=== PATIENT | male | born 1950 | race Asian ===

== ENCOUNTER 2020-12-07 18:08 | Inpatient (IN) | payer MEDICARE, OTHER ==
[~2020-12-07] VITALS: Ht 157.5 cm; Wt 49.9 kg
--- NOTE | 2020-12-07 18:50 | NUR ---
PT IS IN ROOM #2B. DR CHA EVALUATED THE PT. [employer] DR WHITFIELD WAS CALLED ACCORDING TO DR CHA REQUEST.
--- NOTE | 2020-12-07 18:53 | NUR ---
called [facility] cardio at [phone]. spoke with Jamaal, requested to speak with epic cardiology construction economist.
--- NOTE | 2020-12-07 18:59 | NUR ---
REPORT GIVEN TO MOLDER VACUUM RN.
[2020-12-07 19:01] LABS: BASOPHILS # (AUTO) 0.2 K/uL (0.0-8.0); BASOPHILS % (AUTO) 3.7 % (0.0-2.0); EOSINOPHILS % (AUTO) 0.4 % (0.0-7.0); HEMATOCRIT 37.1 % (36.7-47.1); HEMOGLOBIN 12.5 g/dL (12.5-16.3); LYMPHOCYTES # (AUTO) 1.5 K/uL (20.0-40.0); LYMPHOCYTES % (AUTO) 35.3 % (20.5-51.5); MEAN CORPUSCULAR HEMOGLOBIN 32.5 uug (23.8-33.4); MEAN CORPUSCULAR HGB CONC 34 g/dL (32.5-36.3); MEAN CORPUSCULAR VOLUME 96.8 fL (73.0-96.2); MONOCYTES # (AUTO) 0.4 K/uL (2.0-10.0); MONOCYTES % (AUTO) 9.2 % (0.0-11.0); NEUTROPHILS # (AUTO) 2.2 K/uL (1.8-8.9); NEUTROPHILS % (AUTO) 51.4 % (38.5-71.5); PLATELET COUNT (AUTO) 136 K/uL (152-348); RED BLOOD CELL COUNT(AUTO) 3.83 MIL/uL (4.06-5.63); WHITE BLOOD COUNT (AUTO) 4.2 K/uL (3.6-10.2)
[2020-12-07 19:08] LABS: CREATININE 1.3 mg/dL (0.6-1.3); POTASSIUM 3.9 mmol/L (3.5-5.1)
[2020-12-07 19:21] LABS: BILIRUBIN,DIRECT 0.2 mg/dL (0.0-0.2); BILIRUBIN,TOTAL 0.8 mg/dL (0.2-1.0); TOTAL PROTEIN, SERUM 7.4 g/dL (6.4-8.2)
[2020-12-07] MEDS ORDERED: NITROGLYCERIN 0.4 MG/TAB BOTTLE SL ONE (19:30)
[2020-12-07] MEDS ORDERED: ASPIRIN 325 MG TABLET PO ONE (19:30)
[2020-12-07] MEDS ORDERED: ALBUTEROL SULFATE 8 GM HFA.AER.AD IH PRN (19:30)
--- NOTE | 2020-12-07 19:30 | NUR ---
Ngoc albrecht in [facility] - 12/08/20 at 0647 by DENIS Patient requesting food, was given a sandwich and water.
[2020-12-07] MEDS ORDERED: AZITHROMYCIN 500MG/ D5W 250ML IVPB **ER PYXIS ONLY IV ONE (19:49)
[2020-12-07] MEDS: AZITHROMYCIN IV 500 MG in IV DEXTROSE 5% 250 ML IV SCH (20:00)
--- NOTE | 2020-12-07 20:00 | NUR ---
Patient in distress, requesting food to eat. [place] and water was given.
[2020-12-07] MEDS ORDERED: FUROSEMIDE 20 MG/2 ML VIAL IV ONE (20:15)
[2020-12-07] MEDS ORDERED: NITROGLYCERIN OINT 1 GM PACKET TP ONE (20:15)
--- NOTE | 2020-12-07 20:30 | NUR ---
Non-admin of 40mg LASIX per DR. MOODY that there is an order for 20mg to be given all ready at a similar time.
[2020-12-07] MEDS ORDERED: MAGNESIUM HYDROXIDE 30 ML LIQUID UDC PO PRN (21:00)
[2020-12-07] MEDS ORDERED: ONDANSETRON 4 MG/2 ML VIAL IV PRN (21:00)
[2020-12-07] MEDS ORDERED: Z GUARD REMEDY PASTE 57 GM TUBE TOP PRN (21:00)
[2020-12-07] MEDS: FUROSEMIDE 40 MG/4 ML VIAL IV SCH (21:00)
[2020-12-07] MEDS ORDERED: HYDROCODONE/APAP 5-325MG TABLET PO PRN (21:00)
[2020-12-07] MEDS ORDERED: ACETAMINOPHEN 325 MG TABLET PO PRN (21:00)
[2020-12-07 21:40] LABS: *AMPHETAMINE, URINE POSITIVE (NEGATIVE); *CANNABINOID, URINE NEGATIVE (NEGATIVE); *COCCAINE, URINE NEGATIVE (NEGATIVE); *OPIATE, URINE NEGATIVE (NEGATIVE); *PHENCYCLIDINE SCREEN,URINE NEGATIVE (NEGATIVE)
--- NOTE | 2020-12-07 22:00 | NUR ---
Ngoc albrecht in [facility] - 12/08/20 at 0651 by DENIS BiPaP not working on patient, SEMAJ intubated the patient increasing O2 sat to 100%
[2020-12-07] MEDS ORDERED: IOHEXOL 350 100 ML INFUS..BTL ONE (22:27)
[2020-12-07] MEDS ORDERED: SWABABLE VALVE TRANSFER SET EA MC ONE (22:27)
[2020-12-07] MEDS ORDERED: IV NORMAL SALINE 250 ML IV ONE (22:27)
--- NOTE | 2020-12-07 22:30 | NUR ---
Note trena in EDM - 12/08/20 at 0653 by DENIS Patient in considerable distress, stating he cannot breathe. MD Alan called to beside to examine patient. Patient was intitiated on BiPaP.
--- NOTE | 2020-12-07 22:30 | NUR ---
Patient in considerable distress, MD CHA called to beside to examine patient. BiPaP intitated.
--- NOTE | 2020-12-07 23:00 | NUR ---
Ngoc albrecht in ED - 12/08/20 at 0656 by DENIS Bipap discontinued and patient was intubated by Dr. Muniz to improve O2 sat
[2020-12-07 23:03] LABS: ABG BASE EXCESS -19.9 mmol/L; ABG HCO3 7.3 mmol/L; ABG PH 7.137 (7.350-7.450); ABG PO2 518.4 mmHg (75.0-100.0); ABG SITE LEFT RADIAL; VENT MODE BIPAP
[2020-12-07] MEDS: ETOMIDATE 20 MG/10 ML VIAL IV ONE ×2 (23:27→23:50)
--- NOTE | 2020-12-07 23:30 | NUR ---
BIPAP d/c, SEMAJ intubated patient
[2020-12-07] MEDS ORDERED: FENTANYL CITRATE 100 MCG/2 ML AMPUL ONE (23:57)
[2020-12-08] VITALS (24 sets, daily range): BP systolic 83–134; BP diastolic 55–95
[2020-12-08] MEDS ORDERED: FENTANYL CITRATE 100 MCG/2 ML AMPUL ONE ×2 (00:10→00:20)
[2020-12-08] MEDS: FENTANYL CITRAT IV 1,000 MCG in IV NORMAL SALINE 80 ML IV PRN ×2 (00:22→17:45)
[2020-12-08] MEDS ORDERED: MISCELLANEOUS MED XX ONE (00:45)
[2020-12-08] MEDS ORDERED: MIDAZOLAM HCL 5 MG/ML VIAL ONE (00:46)
[2020-12-08 01:11] LABS: ABG BASE EXCESS -6.7 mmol/L; ABG HCO3 17.5 mmol/L; ABG PCO2 31.5 mmHg (35.0-45.0); ABG PH 7.363 (7.350-7.450); ABG PO2 512.4 mmHg (75.0-100.0); ABG SITE RIGHT RADIAL; ABG TOTAL HEMOGLOBIN 13.4 G/dL (13.5-18.0); COHb 0.8 % (0.5-1.5); MetHb 0.1 % (0.0-1.5); O2Hb 99.1 % (94.0-97.0); VENT MODE VENT - A/C; VT, ABG 450 mL
[2020-12-08] MEDS ORDERED: FENTANYL CITRATE 100 MCG/2 ML AMPUL IV ONE (02:00)
[2020-12-08] MEDS: MIDAZOLAM HCL 50 MG in IV NORMAL SALINE 40 ML IV PRN ×2 (02:00→17:44)
--- NOTE | 2020-12-08 02:00 | NUR ---
TPA completed at 0200.
--- NOTE | 2020-12-08 03:00 | NUR ---
Report given to DRU Milan, patient going to bed 3
--- NOTE | 2020-12-08 04:00 | NUR ---
CORRECTION VERSED IS AT 1 MG
--- NOTE | 2020-12-08 04:00 | NUR ---
Patient was transferred to ICU BED 3 under care of DRU Milan
--- NOTE | 2020-12-08 04:00 | NUR ---
received report and patient from Olivier , patient is arousable to deep pain , on versed at 10 mg , fentanyl at 50mcg , vent setting ac 20 tv 450 p 5 fio2 65 % , menjivar inserted , sr at 85 saturating 96 % bp 99/75 hr 20 , temp 97.9
--- NOTE | 2020-12-08 04:30 | NUR ---
INSERTED WHITE CATHETER WITH 16 FR WITH ONE ATTEMPT
[2020-12-08] MEDS ORDERED: SUCCINYLCHOLINE CHLORIDE 200 MG/10 ML VIAL IV ONE ×2 (04:45→06:00)
[2020-12-08] MEDS ORDERED: MISCELLANEOUS MED IV ONE (04:45)
--- NOTE | 2020-12-08 04:45 | NUR ---
TOM CALLED ABOUT PATIENT;S STATUS , ON VERSED AND FENTANYL , LOW BLOOD PRESSURE , RECEIVED ORDER FOR LEVOPHED
[2020-12-08 05:24] LABS: BASOPHILS % (AUTO) 0.7 % (0.0-2.0); EOSINOPHILS % (AUTO) 0.2 % (0.0-7.0); HEMATOCRIT 36.4 % (36.7-47.1); HEMOGLOBIN 11.9 g/dL (12.5-16.3); LYMPHOCYTES # (AUTO) 1.8 K/uL (20.0-40.0); LYMPHOCYTES % (AUTO) 28.2 % (20.5-51.5); MEAN CORPUSCULAR HEMOGLOBIN 32.2 uug (23.8-33.4); MEAN CORPUSCULAR HGB CONC 33 g/dL (32.5-36.3); MEAN CORPUSCULAR VOLUME 98.1 fL (73.0-96.2); MONOCYTES # (AUTO) 0.9 K/uL (2.0-10.0); MONOCYTES % (AUTO) 14.1 % (0.0-11.0); NEUTROPHILS # (AUTO) 3.7 K/uL (1.8-8.9); NEUTROPHILS % (AUTO) 56.8 % (38.5-71.5); PLATELET COUNT (AUTO) 141 K/uL (152-348); RED BLOOD CELL COUNT(AUTO) 3.71 MIL/uL (4.06-5.63); WHITE BLOOD COUNT (AUTO) 6.5 K/uL (3.6-10.2)
[2020-12-08 05:44] LABS: CARBON DIOXIDE 25 mmol/L (21-32); CHLORIDE 106 mmol/L (98-107); CHOLESTEROL 116 mg/dL (<200); CREATININE 1.7 mg/dL (0.6-1.3); GLUCOSE 111 mg/dL (74-106); HDL CHOLESTEROL 38 mg/dL (40-60); MAGNESIUM 2.1 mg/dL (1.8-2.4); PHOSPHOROUS 4.6 mg/dL (2.5-4.9); POTASSIUM 4.8 mmol/L (3.5-5.1); TRIGLYCERIDES 57 MG/DL (30-150); UREA NITROGEN, BLOOD 34 mg/dL (7-18)
[2020-12-08 05:46] LABS: THYROID STIMULATING HORMONE 14.045 mIU/mL (0.358-3.740)
[2020-12-08] MEDS ORDERED: ETOMIDATE 20 MG/10 ML VIAL IV ONE (06:00)
[2020-12-08] MEDS ORDERED: PANTOPRAZOLE SODIUM 40 MG TABLET.DR PO SCH (07:00)
[2020-12-08] MEDS ORDERED: Z GUARD REMEDY PASTE 57 GM TUBE TOP PRN (07:30)
[2020-12-08] MEDS: FUROSEMIDE 40 MG/4 ML VIAL IV SCH ×2 (08:04→20:22)
[2020-12-08] MEDS ORDERED: HEPARIN/D5W DRIP 500 ML IV PRN (08:45)
[2020-12-08] MEDS ORDERED: ENOXAPARIN SODIUM 40 MG/0.4 ML DISP.SYRIN SQ SCH (09:00)
--- NOTE | 2020-12-08 09:33 | NUR ---
Dr. Camara in the unit to see pt. with new orders. report given.
--- NOTE | 2020-12-08 11:29 | NUR ---
Spoke to pharmacy. pt to start on heparin drip. dosing confirmed with pharmacy. per pharmacy, ,initial dose should be 900 instead of 1000. adjustments can follow the table.
[2020-12-08] MEDS: PANTOPRAZOLE SODIUM 40 MG VIAL IV SCH (11:51)
[2020-12-08] MEDS ORDERED: ALTEPLASE 100 MG VIAL IV ONE (12:19)
--- NOTE | 2020-12-08 13:39 | NUR ---
pt noted with change in rhythm/irregular HR, fluctuating from 70s to 130s. STAT ECG ordered and done. ECG results sent to Dr. Camara with new order for STAT ABG. RT Kayode aware.
[2020-12-08 13:57] LABS: ABG BASE EXCESS -2.4 mmol/L; ABG HCO3 22.5 mmol/L; ABG PCO2 39.3 mmHg (35.0-45.0); ABG PH 7.376 (7.350-7.450); ABG PO2 300.8 mmHg (75.0-100.0); ABG SITE RIGHT RADIAL; ABG TOTAL HEMOGLOBIN 13.5 G/dL (13.5-18.0); COHb 0.7 % (0.5-1.5); MetHb 0.3 % (0.0-1.5); O2Hb 98.9 % (94.0-97.0); VENT MODE VENT - A/C; VT, ABG 450 mL
--- NOTE | 2020-12-08 15:24 | NUR ---
Dr. Camara notified of continuous on and off fluctuating HR from 80s to 130s. also notified MD of STAT ABG results he ordered.
[2020-12-08] MEDS ORDERED: CEFTRIAXONE 1 G VIAL IM SCH (16:00)
[2020-12-08] MEDS: NOREPINEPHRINE BITARTRATE 8 MG in IV NORMAL SALINE 242 ML IV PRN (16:18)
[2020-12-08] MEDS: methylPREDNISolone SOD SUCC 40 MG/ML VIAL IV SCH ×2 (16:31→21:21)
--- NOTE | 2020-12-08 17:00 | NUR ---
Dr. Guerra in the unit to see and assess pt.. report given
[2020-12-08] MEDS: CEFTRIAXONE 1 G in IV DEXTROSE 5% 50 ML IV SCH (17:44)
--- NOTE | 2020-12-08 17:45 | NUR ---
fentanyl and versed bags completed and replaced with new ones. no pink paper found for fentanyl found. during endorsement with fuller brush man earlier this morning, only versed pink paper was endorsed by previous shift.
--- NOTE | 2020-12-08 18:51 | NUR ---
ptt result 47.9. per heparin protoccol, no change in dose, continue current order for 900units. next ptt ordered for tomorrow 12/09 @0600
--- NOTE | 2020-12-08 19:20 | NUR ---
shift report given to retail shift leader RN Tiara
--- NOTE | 2020-12-08 19:30 | NUR ---
Report received. Patient orally intubated and to mechanical ventilator with settings: AC=20, FIO2=40%, PEEP=5 and IK=327. O2 sat above 94%. Assessment done and documented. See flow sheet for complete data.
[2020-12-08] MEDS: AZITHROMYCIN IV 500 MG in IV DEXTROSE 5% 250 ML IV SCH (20:12)
--- NOTE | 2020-12-08 20:25 | NUR ---
RT at bedside. Suctioning BRB secretions orally also noted small amounts of blood from nares. No hematuria; but with small bleeding around the penile orifice. Spoke to Dr. Gtz re: bleeding. Ordered to dc Heparin drip.
[2020-12-09] VITALS (49 sets, daily range): BP systolic 71–118; BP diastolic 43–77
[2020-12-09] MEDS: methylPREDNISolone SOD SUCC 40 MG/ML VIAL IV SCH ×3 (06:00→21:48)
--- NOTE | 2020-12-09 06:30 | NUR ---
Remains on the same vent settings. Condition unchanged.
--- NOTE | 2020-12-09 08:15 | NUR ---
Pt.was seen by GISELA MARINO MD
[2020-12-09] MEDS: FUROSEMIDE 40 MG/4 ML VIAL IV SCH (08:22)
[2020-12-09] MEDS: PANTOPRAZOLE SODIUM 40 MG VIAL IV SCH (08:22)
[2020-12-09] MEDS: FENTANYL CITRAT IV 1,000 MCG in IV NORMAL SALINE 80 ML IV PRN (08:52)
[2020-12-09 09:00] LABS: ABG BASE EXCESS -7.7 mmol/L; ABG PCO2 37.6 mmHg (35.0-45.0); ABG PH 7.298 (7.350-7.450); ABG PO2 157.9 mmHg (75.0-100.0); ABG SITE RIGHT RADIAL; COHb 0.7 % (0.5-1.5); MetHb 0.2 % (0.0-1.5); O2Hb 98.4 % (94.0-97.0); VENT MODE VENT - A/C; VT, ABG 450 mL
[2020-12-09 09:24] LABS: ALANINE AMINOTRANSFERASE 98 U/L (16-63); ALKALINE PHOSPHATASE 86 U/L (50-136); ASPARTATE AMINOTRANSFERASE 79 U/L (15-37); BILIRUBIN,TOTAL 0.5 mg/dL (0.2-1.0); CARBON DIOXIDE 24 mmol/L (21-32); CHLORIDE 104 mmol/L (98-107); CREATININE 1.6 mg/dL (0.6-1.3); GLUCOSE 167 mg/dL (74-106); MAGNESIUM 2.2 mg/dL (1.8-2.4); PHOSPHOROUS 6.4 mg/dL (2.5-4.9); POTASSIUM 4.1 mmol/L (3.5-5.1); TOTAL PROTEIN, SERUM 7.6 g/dL (6.4-8.2); UREA NITROGEN, BLOOD 45 mg/dL (7-18)
[2020-12-09 09:32] LABS: BASOPHILS % (AUTO) 0.4 % (0.0-2.0); HEMATOCRIT 41.2 % (36.7-47.1); HEMOGLOBIN 13.5 g/dL (12.5-16.3); LYMPHOCYTES # (AUTO) 0.5 K/uL (20.0-40.0); LYMPHOCYTES % (AUTO) 14.3 % (20.5-51.5); MEAN CORPUSCULAR HEMOGLOBIN 31.9 uug (23.8-33.4); MEAN CORPUSCULAR HGB CONC 33 g/dL (32.5-36.3); MEAN CORPUSCULAR VOLUME 97.6 fL (73.0-96.2); MONOCYTES # (AUTO) 0.1 K/uL (2.0-10.0); MONOCYTES % (AUTO) 2.2 % (0.0-11.0); NEUTROPHILS % (AUTO) 83.1 % (38.5-71.5); PLATELET COUNT (AUTO) 199 K/uL (152-348); RED BLOOD CELL COUNT(AUTO) 4.22 MIL/uL (4.06-5.63); WHITE BLOOD COUNT (AUTO) 3.6 K/uL (3.6-10.2)
[2020-12-09] MEDS: CEFTRIAXONE 1 G in IV DEXTROSE 5% 50 ML IV SCH (17:00)
[2020-12-09] MEDS ORDERED: AMIODARONE HCL IV 150 MG in IV DEXTROSE 5% 100 ML IV ONE (17:30)
[2020-12-09] MEDS: AMIODARONE HCL IV 450 MG in IV DEXTROSE 5% 250 ML IV PRN (18:36)
--- NOTE | 2020-12-09 19:33 | NUR ---
Report received. Patient orally intubated and to mechanical ventilator with settings: AC=20, FIO2=30%, XA=530om, PEEP=5cm; O2 sats above 94%. On continuous Versed and Fentanyl drip via RIJ TLC; see IV spread sheet for rates/dosages. Hypotensive. Levophed drip started to keep SBP above 90. Assessment done; refer to flow sheet for complete data. Addendum: 12/10/20 at 0742 by BENJA PONCE RN Amended: Links added. Addendum: 12/10/20 at 0744 by BENJA PONCE RN Amended: Links added.
[2020-12-09] MEDS: NOREPINEPHRINE BITARTRATE 8 MG in IV NORMAL SALINE 242 ML IV PRN (20:05)
[2020-12-09] MEDS ORDERED: FUROSEMIDE 40 MG/4 ML VIAL IV SCH (21:00)
[2020-12-10] VITALS (46 sets, daily range): BP systolic 81–148; BP diastolic 49–89
--- NOTE | 2020-12-10 | NUR ---
Levophed drip titrated; SBPs in the 80's. Addendum: 12/10/20 at 0744 by BENJA PONCE RN Amended: Links added.
[2020-12-10] MEDS: MIDAZOLAM HCL 50 MG in IV NORMAL SALINE 40 ML IV PRN (01:34)
[2020-12-10] MEDS: AMIODARONE HCL IV 450 MG in IV DEXTROSE 5% 250 ML IV PRN (01:37)
[2020-12-10] MEDS: FENTANYL CITRAT IV 1,000 MCG in IV NORMAL SALINE 80 ML IV PRN (02:09)
[2020-12-10 05:14] LABS: BASOPHILS % (AUTO) 0.1 % (0.0-2.0); HEMATOCRIT 36.6 % (36.7-47.1); HEMOGLOBIN 12.2 g/dL (12.5-16.3); LYMPHOCYTES # (AUTO) 0.5 K/uL (20.0-40.0); LYMPHOCYTES % (AUTO) 10.4 % (20.5-51.5); MEAN CORPUSCULAR HEMOGLOBIN 32.9 uug (23.8-33.4); MEAN CORPUSCULAR HGB CONC 33 g/dL (32.5-36.3); MONOCYTES # (AUTO) 0.2 K/uL (2.0-10.0); MONOCYTES % (AUTO) 4.7 % (0.0-11.0); NEUTROPHILS % (AUTO) 84.8 % (38.5-71.5); PLATELET COUNT (AUTO) 245 K/uL (152-348); WHITE BLOOD COUNT (AUTO) 4.7 K/uL (3.6-10.2)
[2020-12-10] MEDS: methylPREDNISolone SOD SUCC 40 MG/ML VIAL IV SCH ×3 (05:24→22:29)
[2020-12-10 05:30] LABS: CARBON DIOXIDE 23 mmol/L (21-32); CHLORIDE 101 mmol/L (98-107); CREATININE 2.7 mg/dL (0.6-1.3); GLUCOSE 276 mg/dL (74-106); MAGNESIUM 2.6 mg/dL (1.8-2.4); PHOSPHOROUS 7.4 mg/dL (2.5-4.9); POTASSIUM 5.5 mmol/L (3.5-5.1); UREA NITROGEN, BLOOD 75 mg/dL (7-18)
--- NOTE | 2020-12-10 06:00 | NUR ---
Kept sedated with Versed and Fentanyl drips. Levophed drip remains at 0.15mcg/kg/min. to keep SBP above 90. Still with bloody secretions from mouth.
--- NOTE | 2020-12-10 07:15 | NUR ---
Received report from warehouse shift supervisor nurse, patient continues to be intubated on levophed 0.15, amioderon 0.5mg/min, fentanyl 50mcg, versed 2 mg. Sinus rhtyhm on the monitor, bed in low position, 100% oxygen saturation. All alarms and pumps checked. Will continue to monitor.
--- NOTE | 2020-12-10 07:21 | NUR ---
Reported abnormal chemistries to Dr. Fuentes. and requested sliding scale insulin.
[2020-12-10 08:05] LABS: *BILIRUBIN,URIN NEGATIVE (NEGATIVE); *CLARITY,URINE SLIGHTLY CLOUDY (CLEAR); *COLOR,URINE YELLOW (YELLOW); *KETONES,URINE NEGATIVE (NEGATIVE); *UROBILINOGEN,URINE 0.2 E.U./dl (NORMAL); LEUKOCYTE ESTERASE ,URINE NEGATIVE (NEGATIVE); NITRITE, URINE NEGATIVE (NEGATIVE); PH,URINE 5.5 (5.0-8.0); UGLUCOSE NEGATIVE (NEGATIVE)
[2020-12-10] MEDS: PANTOPRAZOLE SODIUM 40 MG VIAL IV SCH (08:23)
[2020-12-10] MEDS ORDERED: DEXTROSE 50% 50 ML DISP.SYRIN IV PRN (08:30)
[2020-12-10] MEDS: BLOOD SUGAR DIAGNOSTIC 1 EACH STRIP VI SCH ×4 (08:35→23:53)
[2020-12-10 08:44] LABS: ABG BASE EXCESS -10.2 mmol/L; ABG HCO3 17.5 mmol/L; ABG PH 7.208 (7.350-7.450); ABG PO2 122.7 mmHg (75.0-100.0); ABG SITE RIGHT RADIAL; ABG TOTAL HEMOGLOBIN 14.6 G/dL (13.5-18.0); MetHb 0.3 % (0.0-1.5); O2Hb 96.9 % (94.0-97.0); VENT MODE VENT - A/C; VT, ABG 450 mL
[2020-12-10 08:50] LABS: *CREATININE,URINE 66.8 mg/dL (30-125)
[2020-12-10 08:51] LABS: *BLOOD, URINE TRACE (NEGATIVE)
[2020-12-10 09:03] LABS: RBC,URINE 0-3 /HPF (0-3)
[2020-12-10 09:04] LABS: BACTERIA,URINE NONE SEEN /HPF (NONE SEEN); MUCUS,URINE FEW /LPF (0-FEW); SQUAMOUS EPITHELIAL CELL,UR FEW /HPF (NONE SEEN); URINE AMORPHOUS URATE MODERATE /HPF
--- NOTE | 2020-12-10 11:00 | NUR ---
Building Serviceman notes: Patient is a 70 year old male, who came to the ED on 12/07 complaining of shortness of breath. Per ED physician's note, patient has a hx of methamphetamines use, along with cigarettes. Per ED physician's notes, patient required to be intubated soon after arriving to the ED, and currently remains intubated. Per patient's records, patient is homeless, and there is no information on next-of-kin. This SW is unable to interview the patient due to his current medical condition. SW will remain available, as needed.
[2020-12-10] MEDS: SODIUM BICARBONATE 8.4% 100 MEQ in IV D5 1/2 NS 1000 ML 1,000 ML IV SCH (12:15)
--- NOTE | 2020-12-10 13:55 | NUR ---
Coldfusion note: This SW was able to locate next-of-kin for this patient, Hang Ochoa, son, . SW was able to speak with Hang, who stated that he is one of 4 children for the patient. SW informed Hang that patient is currently in the ICU, and asked about his involvement in patient's life and his willingness to speak with patient's physician regarding patient's prognosis and treatment plan. Hang stated he was receptive to speaking with patient's physician. This SW to contact patient's physician to relay above information. SW also informed patient's nurse Danyelle about above information.
[2020-12-10] MEDS: INSULIN REGULAR, HUMAN 300 UNIT/3 ML VIAL SQ PRN (13:57)
[2020-12-10] MEDS: NOREPINEPHRINE BITARTRATE 8 MG in IV NORMAL SALINE 242 ML IV PRN (14:00)
--- NOTE | 2020-12-10 15:25 | NUR ---
This SW spoke with Dr. Fuentes and informed her that patient has a next-of-kin, Hang Ochoa, son, . Son's name and phone number provided to Dr. Fuentes, who will call patient's son to discuss patient's condition, prognosis, and treatment plan.
[2020-12-10] MEDS: CEFTRIAXONE 1 G in IV DEXTROSE 5% 50 ML IV SCH (17:18)
[2020-12-10] MEDS ORDERED: SODIUM POLYSTYRENE SULFONATE 15 G/60 ML LIQUID UDC PO ONE (17:30)
[2020-12-10] MEDS: NEPRO 1000 ML GT PRN (18:50)
--- NOTE | 2020-12-10 20:00 | NUR ---
ROUNDS MADE PATIENT IN BED ORALLY INTUBATED AC 20 FIO2 30% PEEP 5 TV 450.SUCTION PATIENT VIA ETT AND VIA MOUTH . NO S/S OF PAIN PATIENT ON VERSED AND FENTANYL DRIP FOR SEDATION . CONTINUE TO MONITOR V/S AND ON LEVOPHED TO KEEP SYSTOLIC >90 MM/HG . CONTINUE TO MONITOR V/S AND LEVELS OF COMFORT .
[2020-12-10] MEDS: AMIODARONE HCL 200 MG TABLET PO SCH (20:28)
[2020-12-10] MEDS ORDERED: FUROSEMIDE 40 MG/4 ML VIAL IV ONE (21:00)
[2020-12-11] VITALS (76 sets, daily range): BP systolic 88–148; BP diastolic 46–93
--- NOTE | 2020-12-11 | NUR ---
Lasix given 80 mg x1 with good results 1100 ml .yellowish urine
[2020-12-11] MEDS: INSULIN REGULAR, HUMAN 300 UNIT/3 ML VIAL SQ PRN ×5 (00:12→23:54)
[2020-12-11] MEDS: FENTANYL CITRAT IV 1,000 MCG in IV NORMAL SALINE 80 ML IV PRN ×2 (00:22→21:10)
[2020-12-11] MEDS: NOREPINEPHRINE BITARTRATE 8 MG in IV NORMAL SALINE 242 ML IV PRN ×2 (00:28→23:45)
[2020-12-11] MEDS: SODIUM BICARBONATE 8.4% 100 MEQ in IV D5 1/2 NS 1000 ML 1,000 ML IV SCH ×2 (02:39→16:59)
--- NOTE | 2020-12-11 05:30 | NUR ---
am care done bath patient changed soiled linens and gown ,oral care done suction patient via ett and via mouth .
[2020-12-11] MEDS: BLOOD SUGAR DIAGNOSTIC 1 EACH STRIP VI SCH ×4 (05:52→23:52)
[2020-12-11 06:16] LABS: CARBON DIOXIDE 29 mmol/L (21-32); CHLORIDE 101 mmol/L (98-107); CREATINE KINASE, TOTAL 41 U/L (39-308); CREATININE 3.4 mg/dL (0.6-1.3); MAGNESIUM 2.5 mg/dL (1.8-2.4); PHOSPHOROUS 6.3 mg/dL (2.5-4.9)
[2020-12-11 06:31] LABS: GLUCOSE 312 mg/dL (74-106); UREA NITROGEN, BLOOD 96 mg/dL (7-18)
[2020-12-11 06:51] LABS: BASOPHILS % (AUTO) 0.1 % (0.0-2.0); EOSINOPHILS % (AUTO) 0.2 % (0.0-7.0); HEMATOCRIT 40.8 % (36.7-47.1); HEMOGLOBIN 13.8 g/dL (12.5-16.3); LYMPHOCYTES # (AUTO) 0.2 K/uL (20.0-40.0); LYMPHOCYTES % (AUTO) 3.4 % (20.5-51.5); MEAN CORPUSCULAR HEMOGLOBIN 32.9 uug (23.8-33.4); MEAN CORPUSCULAR HGB CONC 34 g/dL (32.5-36.3); MEAN CORPUSCULAR VOLUME 97.3 fL (73.0-96.2); MONOCYTES # (AUTO) 0.3 K/uL (2.0-10.0); MONOCYTES % (AUTO) 5.1 % (0.0-11.0); NEUTROPHILS # (AUTO) 5.4 K/uL (1.8-8.9); NEUTROPHILS % (AUTO) 91.2 % (38.5-71.5); PLATELET COUNT (AUTO) 139 K/uL (152-348); WHITE BLOOD COUNT (AUTO) 5.9 K/uL (3.6-10.2)
[2020-12-11] MEDS: methylPREDNISolone SOD SUCC 40 MG/ML VIAL IV SCH ×3 (08:10→21:04)
[2020-12-11] MEDS: AMIODARONE HCL 200 MG TABLET PO SCH ×2 (08:10→20:03)
[2020-12-11] MEDS: PANTOPRAZOLE SODIUM 40 MG VIAL IV SCH (08:10)
[2020-12-11] MEDS: NEPRO 1000 ML GT PRN (08:33)
[2020-12-11 08:58] LABS: ABG BASE EXCESS 1.1 mmol/L; ABG HCO3 27.1 mmol/L; ABG PH 7.369 (7.350-7.450); ABG PO2 121.5 mmHg (75.0-100.0); ABG SITE RIGHT RADIAL; VENT MODE VENT - A/C; VT, ABG 450 mL
--- NOTE | 2020-12-11 09:15 | NUR ---
Dr. clemens in the unit and saw pt. report given
--- NOTE | 2020-12-11 12:03 | NUR ---
pt noted with episodes of bradycardia down to 52 then up to 60s. STAT EKG ordered showing sinus bradycardia with PACs, left ventricular hypertrophy with repolarization abnormality, and prolonged QT. Dr. Camara informed and EKG results relayed to MD. Per MD, nothing to do for now. will continue to monitor.
[2020-12-11] MEDS: MIDAZOLAM HCL 50 MG in IV NORMAL SALINE 40 ML IV PRN (12:12)
--- NOTE | 2020-12-11 13:35 | NUR ---
pt noted with aflutter on the monitor. Dr. Fuentes in the unit. full report given
--- NOTE | 2020-12-11 13:39 | NUR ---
spoke to Dr. Camara on the telephone and inform MD that pt went into aflutter on the monitor. Per MD, just continue to monitor pt for now as pt already on amio and pressors. will continue to monitor.
--- NOTE | 2020-12-11 13:54 | NUR ---
Dr. Guerra in the unit to see & assess pt. full report given
[2020-12-11] MEDS: HEPARIN SODIUM,PORCINE 5,000 UNITS/ML VIAL SQ SCH ×2 (14:49→20:05)
--- NOTE | 2020-12-11 16:54 | NUR ---
Patient noted to have a temp of 96.2 rectally after assessing patient for increasing bradycardia. Patient placed under several blankets and socks until salvage supervisor is able to bring bairhugger.
[2020-12-11] MEDS: CEFTRIAXONE 1 G in IV DEXTROSE 5% 50 ML IV SCH (16:59)
[2020-12-12] VITALS (73 sets, daily range): BP systolic 99–137; BP diastolic 52–74
--- NOTE | 2020-12-12 00:42 | NUR ---
Received patient from AM nurse. On vent(7.5 - 24 at the lip): A/C - 20 -- Fio2: 30% -- TV: 450 -- PEEP: 5. Patient is Sinus Lester on monitor and on rico hugger due to being Hypothermic during day shift. On drips of Levofed running at 0.02mcg/kg/min -- Fentanyl 5 mg/hr -- bicarb 75cc/hr -- and versed at 2mg/hr. Accucheck Q6H. Will continue plan of care, monitor, and assess.
--- NOTE | 2020-12-12 00:51 | NUR ---
Patient weaned down from dose of Levofed and Versed. Levofed was running at 0.02 mcg/kg/min and has been titrated down to 0.01 mcg/kg min. Versed was running at 2 ml/hr and has been titrated down to 1 ml/hr. Patients vital signs stable. See Vital sheet. Will monitor and assess. Addendum: 12/12/20 at 0250 by ALINA HERNANDEZ RN LEVOPHED*
[2020-12-12] MEDS ORDERED: IV NORMAL SALINE 500 ML IV PRN (02:30)
[2020-12-12] MEDS: methylPREDNISolone SOD SUCC 40 MG/ML VIAL IV SCH ×3 (05:14→22:03)
[2020-12-12] MEDS: MIDAZOLAM HCL 50 MG in IV NORMAL SALINE 40 ML IV PRN ×2 (05:15→11:50)
[2020-12-12] MEDS: SODIUM BICARBONATE 8.4% 100 MEQ in IV D5 1/2 NS 1000 ML 1,000 ML IV SCH (05:20)
[2020-12-12] MEDS: BLOOD SUGAR DIAGNOSTIC 1 EACH STRIP VI SCH ×4 (05:33→23:57)
[2020-12-12] MEDS: INSULIN REGULAR, HUMAN 300 UNIT/3 ML VIAL SQ PRN ×4 (05:34→23:58)
--- NOTE | 2020-12-12 05:44 | NUR ---
PHARMACY: Midazolam MIXED but NOT USED. WILL BE GIVEN TO AM PHARMACY.
[2020-12-12 05:54] LABS: HEMATOCRIT 37.6 % (36.7-47.1); HEMOGLOBIN 12.7 g/dL (12.5-16.3); LYMPHOCYTES # (AUTO) 0.2 K/uL (20.0-40.0); LYMPHOCYTES % (AUTO) 3.2 % (20.5-51.5); MEAN CORPUSCULAR HEMOGLOBIN 32.9 uug (23.8-33.4); MEAN CORPUSCULAR HGB CONC 34 g/dL (32.5-36.3); MEAN CORPUSCULAR VOLUME 97.2 fL (73.0-96.2); MONOCYTES # (AUTO) 0.3 K/uL (2.0-10.0); MONOCYTES % (AUTO) 4.5 % (0.0-11.0); NEUTROPHILS # (AUTO) 5.9 K/uL (1.8-8.9); NEUTROPHILS % (AUTO) 92.3 % (38.5-71.5); PLATELET COUNT (AUTO) 119 K/uL (152-348); RED BLOOD CELL COUNT(AUTO) 3.87 MIL/uL (4.06-5.63); WHITE BLOOD COUNT (AUTO) 6.4 K/uL (3.6-10.2)
[2020-12-12 06:15] LABS: CARBON DIOXIDE 38 mmol/L (21-32); CHLORIDE 108 mmol/L (98-107); GLUCOSE 253 mg/dL (74-106); MAGNESIUM 2.7 mg/dL (1.8-2.4); PHOSPHOROUS 2.7 mg/dL (2.5-4.9); POTASSIUM 3.7 mmol/L (3.5-5.1); UREA NITROGEN, BLOOD 78 mg/dL (7-18)
[2020-12-12 06:30] LABS: ABG BASE EXCESS 11.3 mmol/L; ABG HCO3 37.4 mmol/L; ABG PO2 101.2 mmHg (75.0-100.0); ABG SITE RIGHT RADIAL; ABG TOTAL HEMOGLOBIN 13.6 G/dL (13.5-18.0); COHb 0.8 % (0.5-1.5); MetHb 0.3 % (0.0-1.5); O2Hb 96.7 % (94.0-97.0); VENT MODE VENT - A/C; VT, ABG 450 mL
--- NOTE | 2020-12-12 07:18 | NUR ---
Patient handed off to AM nurse. Hemodynamically stable. VSS. No distress. Safety measures in place. Plan of care continued. Will monitor and assess.
[2020-12-12] MEDS: AMIODARONE HCL 200 MG TABLET PO SCH ×2 (08:01→20:07)
[2020-12-12] MEDS: HEPARIN SODIUM,PORCINE 5,000 UNITS/ML VIAL SQ SCH ×2 (08:01→20:09)
[2020-12-12] MEDS: PANTOPRAZOLE ORAL SUSPENSION 40 MG SUSPDR.PKT GT SCH (08:01)
[2020-12-12 08:06] LABS: COMPLEMENT, C3 SERUM 62 mg/dL (82-167); COMPLEMENT, C4 SERUM 21 mg/dL (12-38)
[2020-12-12] MEDS: NEPRO 1000 ML GT PRN (09:02)
--- NOTE | 2020-12-12 09:16 | NUR ---
DUST COLLECTOR OPERATOR Juventino Pineda in the unit to see pt. with new orders. full report given
--- NOTE | 2020-12-12 09:40 | NUR ---
Dr. Camara in the unit to see pt. full report given
--- NOTE | 2020-12-12 10:34 | NUR ---
Dr. Guerra in the unit to see and assess pt. with new orders. full report given
--- NOTE | 2020-12-12 11:00 | NUR ---
Dr. Fuentes stopped by the unit. given update/report about pt
[2020-12-12 11:06] LABS: HEPATITIS B SURFACE AB Non Reactive (.); HEPATITIS B SURFACE AG Negative (Negative)
--- NOTE | 2020-12-12 14:22 | NUR ---
Pt noted with bradycardia for about an hour, HR in the 50s, lowest around 46. Asymptomatic. Currently back to HR in the 60s, NSR. Pt off levophed, SBP sustaining >100. Cardio MD, Dr. Camara informed lida no new orders except continue to monitor for now
[2020-12-12] MEDS: CEFTRIAXONE 1 G in IV DEXTROSE 5% 50 ML IV SCH (16:57)
[2020-12-12] MEDS: FENTANYL CITRAT IV 1,000 MCG in IV NORMAL SALINE 80 ML IV PRN (17:06)
--- NOTE | 2020-12-12 19:16 | NUR ---
shift report given to date night sitter RN. VSS. NSR on the monitor. Pt been off of Levoophed since 1330 and maintaining SBP>90. Vent settings AC 20 TC 450 Peep 5, FiO2 30%
--- NOTE | 2020-12-12 19:30 | NUR ---
Report received from am RNs. Patient orally intubated and to mechanical ventilator with settings: AC=20, FIO2=30%, HX=341lz and PEEP=5. O2 saturations above 94%. Grimaces to pain. On continuous Versed @ 1 mg/H and Fentanyl drip @ 50 mcg/H via RIJ TLC. compliance analyst: SR rate 60's-70's. Assessment done and documented. Addendum: 12/12/20 at 2125 by BENJA PONCE RN Amended: Links added.
[2020-12-13] VITALS (24 sets, daily range): BP systolic 128–188; BP diastolic 64–102
--- NOTE | 2020-12-13 01:45 | NUR ---
Patient's daughter Lorena patel; updated of patient's condition. Addendum: 12/13/20 at 0629 by BENJA PONCE RN Amended: Links added. Addendum: 12/13/20 at 629 by BENJA PONCE RN Amended: Links added. Addendum: 12/13/20 at 0630 by BENJA PONCE RN Amended: Links added. Addendum: 12/13/20 at 0631 by BENJA PONCE RN Amended: Links added. Addendum: 12/13/20 at 0631 by BENJA PONCE RN Amended: Links added. Addendum: 12/13/20 at 0631 by BENJA PONCE RN Amended: Links added.
--- NOTE | 2020-12-13 02:30 | NUR ---
Sinus bradycardia on the monitor rate 45-48; BPs stable. Addendum: 12/13/20 at 06 by BENJA PONCE RN Amended: Links added. Addendum: 12/13/20 at 629 by BENJA PONCE RN Amended: Links added. Addendum: 12/13/20 at 0631 by BENJA PONCE RN Amended: Links added. Addendum: 12/13/20 at 0631 by BENJA PONCE RN Amended: Links added. Addendum: 12/13/20 at 0631 by BENJA PONCE RN Amended: Links added.
[2020-12-13] MEDS ORDERED: IV NORMAL SALINE 250 ML IV PRN (05:00)
[2020-12-13 05:09] LABS: BASOPHILS % (AUTO) 0.1 % (0.0-2.0); HEMATOCRIT 38.9 % (36.7-47.1); LYMPHOCYTES # (AUTO) 0.3 K/uL (20.0-40.0); LYMPHOCYTES % (AUTO) 4.5 % (20.5-51.5); MEAN CORPUSCULAR HEMOGLOBIN 32.9 uug (23.8-33.4); MEAN CORPUSCULAR HGB CONC 34 g/dL (32.5-36.3); MEAN CORPUSCULAR VOLUME 98.1 fL (73.0-96.2); MONOCYTES # (AUTO) 0.4 K/uL (2.0-10.0); MONOCYTES % (AUTO) 6.7 % (0.0-11.0); NEUTROPHILS # (AUTO) 5.6 K/uL (1.8-8.9); NEUTROPHILS % (AUTO) 88.7 % (38.5-71.5); PLATELET COUNT (AUTO) 123 K/uL (152-348); RED BLOOD CELL COUNT(AUTO) 3.97 MIL/uL (4.06-5.63); WHITE BLOOD COUNT (AUTO) 6.3 K/uL (3.6-10.2)
[2020-12-13 05:15] LABS: CHLORIDE 112 mmol/L (98-107); CREATININE 1.6 mg/dL (0.6-1.3); GLUCOSE 240 mg/dL (74-106); MAGNESIUM 2.8 mg/dL (1.8-2.4); POTASSIUM 3.2 mmol/L (3.5-5.1); UREA NITROGEN, BLOOD 68 mg/dL (7-18)
[2020-12-13] MEDS: methylPREDNISolone SOD SUCC 40 MG/ML VIAL IV SCH ×3 (05:15→21:00)
[2020-12-13 05:34] LABS: CARBON DIOXIDE 41 mmol/L (21-32)
[2020-12-13] MEDS: BLOOD SUGAR DIAGNOSTIC 1 EACH STRIP VI SCH ×3 (05:56→17:34)
[2020-12-13] MEDS: INSULIN REGULAR, HUMAN 300 UNIT/3 ML VIAL SQ PRN ×3 (05:57→17:35)
--- NOTE | 2020-12-13 07:00 | NUR ---
Remains on the same vent settings; O2 sat above 94%. Fentanyl drip titrated down. Addendum: 12/13/20 at 0700 by BENJA PONCE RN Amended: Links added.
[2020-12-13] MEDS ORDERED: IV D5W 1000ML 1,000 ML IV PRN (08:00)
[2020-12-13] MEDS: AMIODARONE HCL 200 MG TABLET PO SCH (08:05)
[2020-12-13] MEDS: PANTOPRAZOLE ORAL SUSPENSION 40 MG SUSPDR.PKT GT SCH (08:05)
[2020-12-13] MEDS: HEPARIN SODIUM,PORCINE 5,000 UNITS/ML VIAL SQ SCH ×2 (08:06→20:16)
[2020-12-13] MEDS ORDERED: POTASSIUM CHLORIDE 20 MEQ POWDER PACKET NG SCH (09:30)
[2020-12-13 09:46] LABS: ABG BASE EXCESS 8.3 mmol/L; ABG HCO3 32.3 mmol/L; ABG PCO2 42.2 mmHg (35.0-45.0); ABG PH 7.502 (7.350-7.450); ABG SITE RIGHT RADIAL; ABG TOTAL HEMOGLOBIN 13.9 G/dL (13.5-18.0); COHb 1.5 % (0.5-1.5); O2Hb 96.9 % (94.0-97.0); VENT MODE VENT - CPAP - PS 8
--- NOTE | 2020-12-13 09:46 | NUR ---
Patient went tachy in 120's sustained for 3-5min. Possible a-fib, EKG ordered Ppa Teacher notified.
[2020-12-13] MEDS ORDERED: AMIODARONE HCL 200 MG TABLET PO ONE (10:00)
[2020-12-13 10:07] LABS: *ANTI-SCLERODERMA-70 AB <0.2 AI (0.0-0.9); *SJOGREN'S ANTI-SS-A <0.2 AI (0.0-0.9); *SJOGREN'S ANTI-SS-B <0.2 AI (0.0-0.9); *SMITH ANTIBODIES <0.2 AI (0.0-0.9); A/G RATIO 0.8 (0.7-1.7); ALPHA-1-GLOBULIN 0.3 g/dL (0.0-0.4); ALPHA-2-GLOBULIN 0.8 g/dL (0.4-1.0); ANTI-DNA(DS) AB, QN <1 IU/mL (0-9); GAMMA GLOBULIN 1.9 g/dL (0.4-1.8); M-SPIKE Not Observed g/dL (Not Observed)
--- NOTE | 2020-12-13 10:32 | NUR ---
Pulmonary services, Dr. Guerra in the unit to see and examine pt. report given. Orders received and implemented, RT Kayode/Ernesto at bedside.
[2020-12-13] MEDS ORDERED: ACETYLCYSTEINE 20% 800 MG/4 ML VIAL NEB PRN (10:45)
--- NOTE | 2020-12-13 10:46 | NUR ---
Attending physician Dr. Singleton in to assess pt. report given and orders to continue with care plan received.
--- NOTE | 2020-12-13 10:48 | NUR ---
Pt extubated as ordered at 1035 per RT . and placed on 3LNC. Saturation of 100%. pt. tolerating extubation well no distress noted.
[2020-12-13] MEDS ORDERED: DC PROPOFOL ONCE EXTUBATED XX SCH (12:00)
[2020-12-13] MEDS ORDERED: NEUTRA PHOS PACKET NG ONE (12:00)
[2020-12-13] MEDS ORDERED: AMIODARONE HCL IV 150 MG in IV DEXTROSE 5% 100 ML IV ONE (14:00)
[2020-12-13] MEDS: LORAZEPAM 2 MG/1 ML VIAL IV PRN ×2 (14:35→22:41)
[2020-12-13] MEDS: AMIODARONE HCL IV 450 MG in IV DEXTROSE 5% 250 ML IV PRN ×3 (15:15→22:41)
[2020-12-13] MEDS: CEFTRIAXONE 1 G in IV DEXTROSE 5% 50 ML IV SCH (17:26)
--- NOTE | 2020-12-13 19:38 | NUR ---
Patient converted back to Sinus Rhythm at this time. HR: 84 -- Down from 140.
--- NOTE | 2020-12-13 19:46 | NUR ---
Received patient from AM nurse. Patient extubated on Day shift at 1030 - Saturation currently at 95%. Patient HR is Tachy (140s) and on Amiodarone drip at 1mg -- Patient observed to be agitated and is moaning. PRN Ativan given previously - cannot be given at the moment. Patient also on bilateral mittens - Right arm IV infiltrated on observation and removed. Took patients temperature out and it was 97.9 & 97.5 orally and axillary. Will monitor and assess. Addendum: 12/14/20 at 0134 by ALINA HERNANDEZ RN TEMP: 99.4 / 99.2
[2020-12-13] MEDS ORDERED: AMIODARONE HCL 200 MG TABLET PO SCH (21:00)
--- NOTE | 2020-12-13 23:00 | NUR ---
Patient BP unusually high given EF of 15%. Contacted [facility] service for call back from Dr. Fuentes for Morphine & possible Hydralazine PRN.
--- NOTE | 2020-12-13 23:15 | NUR ---
Patient BP still elevated (188/100). Contacted Dr. Fuentes. Requested order for Morphine PRN & Hydralazine (>160 Systolic) PRN. Orders received for both recommendations. Morphine given first - Will monitor and assess response.
[2020-12-13] MEDS ORDERED: hydrALAZINE HCL 20 MG/1 ML VIAL IV PRN (23:30)
[2020-12-13] MEDS: MORPHINE SULFATE 2 MG/1 ML DISP.SYRIN IV PRN (23:43)
[2020-12-13] MEDS ORDERED: ACETAMINOPHEN 650 MG SUPP.RECT RC PRN (23:45)
[2020-12-14] VITALS (24 sets, daily range): BP systolic 94–162; BP diastolic 44–96
--- NOTE | 2020-12-14 | NUR ---
Patients rectal temperature found to be 101.9 -- Blood cultures x2 [id number] & Urine culture obtained. Tylenol Suppository given after. Cooling measures (Ice packs - Bed bath - Removal of blanket) done.
[2020-12-14] MEDS: BLOOD SUGAR DIAGNOSTIC 1 EACH STRIP VI SCH ×5 (00:05→23:55)
[2020-12-14] MEDS: INSULIN REGULAR, HUMAN 300 UNIT/3 ML VIAL SQ PRN ×4 (00:06→23:56)
--- NOTE | 2020-12-14 01:20 | NUR ---
Patient saturating in low 90s - on NRB 15L
[2020-12-14] MEDS: MORPHINE SULFATE 2 MG/1 ML DISP.SYRIN IV PRN ×2 (04:10→09:04)
[2020-12-14 05:17] LABS: BASOPHILS % (AUTO) 0.1 % (0.0-2.0); HEMATOCRIT 40.8 % (36.7-47.1); LYMPHOCYTES # (AUTO) 0.4 K/uL (20.0-40.0); LYMPHOCYTES % (AUTO) 4.2 % (20.5-51.5); MEAN CORPUSCULAR HEMOGLOBIN 33.6 uug (23.8-33.4); MEAN CORPUSCULAR HGB CONC 34 g/dL (32.5-36.3); MEAN CORPUSCULAR VOLUME 98.2 fL (73.0-96.2); MONOCYTES # (AUTO) 0.6 K/uL (2.0-10.0); MONOCYTES % (AUTO) 6.6 % (0.0-11.0); NEUTROPHILS # (AUTO) 8.1 K/uL (1.8-8.9); NEUTROPHILS % (AUTO) 89.1 % (38.5-71.5); PLATELET COUNT (AUTO) 112 K/uL (152-348); RED BLOOD CELL COUNT(AUTO) 4.16 MIL/uL (4.06-5.63); WHITE BLOOD COUNT (AUTO) 9.1 K/uL (3.6-10.2)
[2020-12-14] MEDS: methylPREDNISolone SOD SUCC 40 MG/ML VIAL IV SCH ×3 (05:22→21:10)
[2020-12-14 05:27] LABS: CARBON DIOXIDE 37 mmol/L (21-32); CHLORIDE 112 mmol/L (98-107); CREATININE 1.7 mg/dL (0.6-1.3); GLUCOSE 111 mg/dL (74-106); POTASSIUM 3.3 mmol/L (3.5-5.1); UREA NITROGEN, BLOOD 61 mg/dL (7-18)
[2020-12-14 05:32] LABS: MAGNESIUM 2.6 mg/dL (1.8-2.4); PHOSPHOROUS 3.5 mg/dL (2.5-4.9)
[2020-12-14] MEDS: LORAZEPAM 2 MG/1 ML VIAL IV PRN (06:17)
--- NOTE | 2020-12-14 06:51 | NUR ---
Patient to be handed off to AM nurse. Sinus rhythm on monitor -- O2: 99% -- BP: 152/76 -- RR: 20 -- HR: 90 and Afebrile. RIJ PICC intact and patent. Reyes drained 450 mL of yellow/martha urine. Patient was restless and agitated entire night despite every measure taken to calm him down (See previous notes). Amiodarone running at 0.5mg - D5 Water running at 50cc/hr. Spoke with son regarding patient needing to find placement in a rehabilitation clinic -- Case Management Consult ordered -- will endorse to day shift conversation. Will endorse all pertinent information to AM nurse.
[2020-12-14] MEDS ORDERED: IPRATROPIUM BROMIDE 0.5 MG/2.5 ML NEBU NEB PRN (07:15)
[2020-12-14] MEDS: POTASSIUM CHLORIDE 50 ML IV SCH ×3 (07:44→09:03)
--- NOTE | 2020-12-14 08:00 | NUR ---
Cardiology services, Dr. clemens in the unit to see and examine pt. report given, and orders to continue care plan received.
[2020-12-14] MEDS: HEPARIN SODIUM,PORCINE 5,000 UNITS/ML VIAL SQ SCH ×2 (08:02→21:11)
[2020-12-14] MEDS: PANTOPRAZOLE SODIUM 40 MG VIAL IV SCH (08:02)
[2020-12-14] MEDS: POTASSIUM CHLORIDE 10 MEQ in IV D5W 1000ML 1,000 ML IV PRN ×2 (08:06→21:25)
[2020-12-14] MEDS: NEPRO 1000 ML GT PRN (09:03)
[2020-12-14 09:40] LABS: ABG BASE EXCESS 3.6 mmol/L; ABG HCO3 25.9 mmol/L; ABG PCO2 32.5 mmHg (35.0-45.0); ABG SITE RIGHT RADIAL; ABG TOTAL HEMOGLOBIN 14.4 G/dL (13.5-18.0); COHb 0.9 % (0.5-1.5); MetHb 0.2 % (0.0-1.5); O2Hb 98.2 % (94.0-97.0)
[2020-12-14] MEDS: PIPERACILLIN/TAZO 2.25 G in IV DEXTROSE 5% 50 ML IV SCH ×3 (10:15→21:10)
--- NOTE | 2020-12-14 11:50 | NUR ---
Patient continues to be restless and attempting to pull at lines and squirming in bed, caught patient trying throw legs over side despite restraints. Contacted Dr. Merino for medication for agitation.
[2020-12-14] MEDS: ZIPRASIDONE MESYLATE 20 MG VIAL IM PRN ×2 (12:33→21:36)
--- NOTE | 2020-12-14 13:00 | NUR ---
Pulmonary services, Dr. Guerra in to examine pt. report given.
[2020-12-14] MEDS: AMIODARONE HCL IV 450 MG in IV DEXTROSE 5% 250 ML IV PRN (14:20)
--- NOTE | 2020-12-14 15:00 | NUR ---
Speech eval at bedside, and pt. evaluated and pass swallow eval at this time.
--- NOTE | 2020-12-14 19:00 | NUR ---
Received patient from AM nurse. On bilateral mittens. Vitals WNLs except BP still elevated (148/88) as was the previous night. Will monitor and assess.
[2020-12-14] MEDS ORDERED: ZIPRASIDONE MESYLATE 20 MG VIAL IM ONE (22:10)
[2020-12-15] VITALS (23 sets, daily range): BP systolic 118–155; BP diastolic 57–90
[2020-12-15] MEDS: PIPERACILLIN/TAZO 2.25 G in IV DEXTROSE 5% 50 ML IV SCH ×4 (04:11→21:30)
[2020-12-15] MEDS ORDERED: IV NORMAL SALINE 250 ML IV PRN (04:15)
[2020-12-15] MEDS: ZIPRASIDONE MESYLATE 20 MG VIAL IM PRN ×2 (04:28→20:38)
[2020-12-15] MEDS: methylPREDNISolone SOD SUCC 40 MG/ML VIAL IV SCH ×3 (05:13→21:30)
[2020-12-15] MEDS: BLOOD SUGAR DIAGNOSTIC 1 EACH STRIP VI SCH ×4 (05:16→23:19)
[2020-12-15 05:18] LABS: BASOPHILS % (AUTO) 0.1 % (0.0-2.0); HEMATOCRIT 39.1 % (36.7-47.1); LYMPHOCYTES # (AUTO) 0.3 K/uL (20.0-40.0); LYMPHOCYTES % (AUTO) 3.2 % (20.5-51.5); MEAN CORPUSCULAR HEMOGLOBIN 32.9 uug (23.8-33.4); MEAN CORPUSCULAR HGB CONC 33 g/dL (32.5-36.3); MEAN CORPUSCULAR VOLUME 98.9 fL (73.0-96.2); MONOCYTES # (AUTO) 0.4 K/uL (2.0-10.0); NEUTROPHILS # (AUTO) 9.5 K/uL (1.8-8.9); NEUTROPHILS % (AUTO) 92.7 % (38.5-71.5); PLATELET COUNT (AUTO) 77 K/uL (152-348); RED BLOOD CELL COUNT(AUTO) 3.96 MIL/uL (4.06-5.63); WHITE BLOOD COUNT (AUTO) 10.2 K/uL (3.6-10.2)
[2020-12-15] MEDS: INSULIN REGULAR, HUMAN 300 UNIT/3 ML VIAL SQ PRN ×4 (05:18→23:20)
[2020-12-15 05:33] LABS: ALANINE AMINOTRANSFERASE 760 U/L (16-63); ALKALINE PHOSPHATASE 73 U/L (50-136); ASPARTATE AMINOTRANSFERASE 331 U/L (15-37); BILIRUBIN,DIRECT 0.8 mg/dL (0.0-0.2); BILIRUBIN,TOTAL 1.5 mg/dL (0.2-1.0); CARBON DIOXIDE 35 mmol/L (21-32); CHLORIDE 108 mmol/L (98-107); CREATININE 1.5 mg/dL (0.6-1.3); GLUCOSE 176 mg/dL (74-106); MAGNESIUM 2.3 mg/dL (1.8-2.4); PHOSPHOROUS 2.8 mg/dL (2.5-4.9); POTASSIUM 3.7 mmol/L (3.5-5.1); TOTAL PROTEIN, SERUM 6.1 g/dL (6.4-8.2); UREA NITROGEN, BLOOD 58 mg/dL (7-18)
[2020-12-15] MEDS: AMIODARONE HCL IV 450 MG in IV DEXTROSE 5% 250 ML IV PRN (07:02)
[2020-12-15] MEDS: PANTOPRAZOLE SODIUM 40 MG VIAL IV SCH (07:56)
[2020-12-15] MEDS: POTASSIUM CHLORIDE 10 MEQ in IV D5W 1000ML 1,000 ML IV PRN ×2 (07:56→21:26)
[2020-12-15] MEDS: HEPARIN SODIUM,PORCINE 5,000 UNITS/ML VIAL SQ SCH ×2 (07:57→20:39)
--- NOTE | 2020-12-15 09:52 | NUR ---
Dr. Camara in the unit to see & assess pt with new orders. full report given
--- NOTE | 2020-12-15 12:33 | NUR ---
speech therapy here to see and assess pt
--- NOTE | 2020-12-15 15:45 | NUR ---
Dr. Guerra in the unit to see and assess pt. full repot given
--- NOTE | 2020-12-15 19:15 | NUR ---
shift report given to table games shift manager. VSS. O2 saturation 98-100% on 2l NC
--- NOTE | 2020-12-15 19:30 | NUR ---
Report received. Patient admitted 12/07/20 DX: CHF and Respiratory Failure. Awake, restless, attempting to get out of bed. Oriented to name only; reoriented PRN. Fall and safety precautions maintained. Asking for water. HOB elevated and given water; no swallowing difficulty. Assessment done; see flow sheet for complete data. Addendum: 12/16/20 at 0225 by BENJA PONCE RN Amended: Links added. Addendum: 12/16/20 at 0226 by BENJA PONCE RN Amended: Links added.
--- NOTE | 2020-12-15 20:38 | NUR ---
Continues to be restless. Medicated with Geodon IM. Monitored closely. Addendum: 12/16/20 at 0226 by BENJA PONCE RN Amended: Links added.
[2020-12-15] MEDS: LORAZEPAM 2 MG/1 ML VIAL IV PRN (23:14)
--- NOTE | 2020-12-15 23:14 | NUR ---
Sleeping very little after Geodon, still restless when awake, removing gown and monitor leads. Advised. Patient c/o being "nervous". Disclosed that he uses "meth". Ativan IV given. BP stable. Safety maintained.
[2020-12-16] VITALS (20 sets, daily range): BP systolic 100–143; BP diastolic 59–83
--- NOTE | 2020-12-16 02:15 | NUR ---
O2 saturations has been 98-100%. O2 dc'd; saturations remain above 94% on room air.
[2020-12-16] MEDS: PIPERACILLIN/TAZO 2.25 G in IV DEXTROSE 5% 50 ML IV SCH (04:00)
--- NOTE | 2020-12-16 04:15 | NUR ---
Still with periods of mild restlessness. Monitored closely. Addendum: 12/16/20 at 0415 by BENJA PONCE RN Amended: Links added.
[2020-12-16 05:15] LABS: HEMATOCRIT 38.7 % (36.7-47.1); HEMOGLOBIN 12.8 g/dL (12.5-16.3); LYMPHOCYTES # (AUTO) 0.4 K/uL (20.0-40.0); LYMPHOCYTES % (AUTO) 3.7 % (20.5-51.5); MEAN CORPUSCULAR HEMOGLOBIN 32.2 uug (23.8-33.4); MEAN CORPUSCULAR HGB CONC 33 g/dL (32.5-36.3); MEAN CORPUSCULAR VOLUME 97.8 fL (73.0-96.2); MONOCYTES # (AUTO) 0.4 K/uL (2.0-10.0); MONOCYTES % (AUTO) 3.4 % (0.0-11.0); NEUTROPHILS # (AUTO) 10.6 K/uL (1.8-8.9); NEUTROPHILS % (AUTO) 92.9 % (38.5-71.5); RED BLOOD CELL COUNT(AUTO) 3.96 MIL/uL (4.06-5.63); WHITE BLOOD COUNT (AUTO) 11.4 K/uL (3.6-10.2)
[2020-12-16] MEDS: methylPREDNISolone SOD SUCC 40 MG/ML VIAL IV SCH ×3 (05:17→21:23)
[2020-12-16] MEDS: BLOOD SUGAR DIAGNOSTIC 1 EACH STRIP VI SCH ×4 (05:39→21:39)
[2020-12-16] MEDS: INSULIN REGULAR, HUMAN 300 UNIT/3 ML VIAL SQ PRN ×4 (05:40→21:42)
[2020-12-16 05:41] LABS: BILIRUBIN,DIRECT 0.7 mg/dL (0.0-0.2); BILIRUBIN,TOTAL 1.5 mg/dL (0.2-1.0); CREATININE 1.2 mg/dL (0.6-1.3); MAGNESIUM 2.2 mg/dL (1.8-2.4); PHOSPHOROUS 2.3 mg/dL (2.5-4.9); POTASSIUM 3.3 mmol/L (3.5-5.1); TOTAL PROTEIN, SERUM 5.8 g/dL (6.4-8.2)
[2020-12-16 06:02] LABS: PLATELET COUNT (AUTO) 72 K/uL (152-348)
--- NOTE | 2020-12-16 06:30 | NUR ---
Sleeping after bath. VS stable.
[2020-12-16] MEDS: POTASSIUM CHLORIDE 50 ML IV SCH ×4 (07:41→09:44)
--- NOTE | 2020-12-16 07:44 | NUR ---
Dr. clemens in the unti to see and assess pt with new orders. full report given
--- NOTE | 2020-12-16 07:53 | NUR ---
Spoke to Dr. Wallace regarding downgrading pt from CCU. pt stable, no IV drips. pt was also seen by Dr. Camara and MD agreed pt can be downgraded to tele. Both MDs agree for transfer
[2020-12-16] MEDS: PANTOPRAZOLE SODIUM 40 MG VIAL IV SCH (08:00)
[2020-12-16] MEDS: HEPARIN SODIUM,PORCINE 5,000 UNITS/ML VIAL SQ SCH ×2 (08:01→21:00)
[2020-12-16] MEDS ORDERED: GLIMEPIRIDE 2 MG TABLET PO ONE (10:27)
[2020-12-16] MEDS ORDERED: IV NORMAL SALINE 250 ML IV PRN (11:15)
[2020-12-16] MEDS ORDERED: DEXTROSE 50% 50 ML DISP.SYRIN IV PRN (11:30)
[2020-12-16] MEDS: ZIPRASIDONE MESYLATE 20 MG VIAL IM PRN ×2 (12:57→21:40)
--- NOTE | 2020-12-16 13:05 | NUR ---
Received new telephone order from Dr. Camara to place pt on 1.5L fluids restriction
[2020-12-16] MEDS ORDERED: NEUTRA PHOS PACKET PO ONE (13:15)
[2020-12-16] MEDS: PIPERACILLIN SODIUM/TAZOBACTAM 3.37 G in IV DEXTROSE 5% 100 ML IV SCH ×2 (13:58→21:46)
[2020-12-16] MEDS: LORAZEPAM 2 MG/1 ML VIAL IV PRN ×2 (14:10→23:36)
--- NOTE | 2020-12-16 17:40 | NUR ---
Dr. Guerra in the unit to see and assess pt. full report given
--- NOTE | 2020-12-16 19:30 | NUR ---
Received patient lying in bed. Asleep at this time. 1:1 sitter on site. Appears comfortable in bed. NSR on tele at 68/min. Right IJ intact and patent. Reyes catheter intact and draining via gravity. Safety measure initiated. Continue to monitor.
--- NOTE | 2020-12-16 21:00 | NUR ---
Brought patient to Nurse via Gurkrupa. Patient stable condition. All lines patent. Reyes draining. Patient accompanied by sitter. All pertinent information given to nurse receiving patient. Medications and belongings taken down with patient. Sinus rhythm. VSS. No distress. Endorsed to nurse.
[2020-12-17] VITALS: BP 137/79
[2020-12-17 04:24] VITALS: BP 117/67
[2020-12-17] MEDS: PIPERACILLIN SODIUM/TAZOBACTAM 3.37 G in IV DEXTROSE 5% 100 ML IV SCH ×3 (05:31→22:07)
[2020-12-17] MEDS: PANTOPRAZOLE ORAL SUSPENSION 40 MG SUSPDR.PKT PO SCH (06:05)
[2020-12-17] MEDS: methylPREDNISolone SOD SUCC 40 MG/ML VIAL IV SCH ×3 (06:05→22:10)
[2020-12-17] MEDS: BLOOD SUGAR DIAGNOSTIC 1 EACH STRIP VI SCH ×4 (06:48→20:24)
[2020-12-17 06:57] LABS: BASOPHILS % (AUTO) 0.1 % (0.0-2.0); HEMATOCRIT 37.9 % (36.7-47.1); HEMOGLOBIN 12.8 g/dL (12.5-16.3); LYMPHOCYTES # (AUTO) 0.3 K/uL (20.0-40.0); LYMPHOCYTES % (AUTO) 2.7 % (20.5-51.5); MEAN CORPUSCULAR HEMOGLOBIN 32.8 uug (23.8-33.4); MEAN CORPUSCULAR HGB CONC 34 g/dL (32.5-36.3); MEAN CORPUSCULAR VOLUME 97.4 fL (73.0-96.2); MONOCYTES # (AUTO) 0.3 K/uL (2.0-10.0); MONOCYTES % (AUTO) 2.3 % (0.0-11.0); NEUTROPHILS # (AUTO) 11.1 K/uL (1.8-8.9); NEUTROPHILS % (AUTO) 94.9 % (38.5-71.5); PLATELET COUNT (AUTO) 77 K/uL (152-348); RED BLOOD CELL COUNT(AUTO) 3.89 MIL/uL (4.06-5.63); WHITE BLOOD COUNT (AUTO) 11.7 K/uL (3.6-10.2)
--- NOTE | 2020-12-17 07:00 | NUR ---
Patient in bed, awake. no signs of respiratory distress. Occasionally anxious and given Geodon PRN per order as well as Ativan IV per order and effective. 1:1 sitter on site. No signs of pain or SOB noted. NSR on tele at 65/min. PICC line on right IJ intact and patent. Reyes cath draining well.
[2020-12-17 07:20] LABS: BILIRUBIN,TOTAL 1.6 mg/dL (0.2-1.0); CREATININE 1.2 mg/dL (0.6-1.3); PHOSPHOROUS 2.4 mg/dL (2.5-4.9); POTASSIUM 3.8 mmol/L (3.5-5.1); TOTAL PROTEIN, SERUM 5.2 g/dL (6.4-8.2)
[2020-12-17 08:00] VITALS: BP 127/78
[2020-12-17] MEDS: GLIMEPIRIDE 2 MG TABLET PO SCH (08:34)
[2020-12-17] MEDS: INSULIN REGULAR, HUMAN 300 UNIT/3 ML VIAL SQ PRN ×3 (08:36→17:00)
[2020-12-17] MEDS: HEPARIN SODIUM,PORCINE 5,000 UNITS/ML VIAL SQ SCH (09:00)
[2020-12-17] MEDS: LORAZEPAM 2 MG/1 ML VIAL IV PRN (09:26)
[2020-12-17] MEDS ORDERED: POTASSIUM PHOSPHATE MM 7.5 MMOL in IV NORMAL SALINE 97.5 ML IV ONE (10:30)
[2020-12-17 11:42] VITALS: BP 110/71
--- NOTE | 2020-12-17 12:24 | NUR ---
Computing Systems Mechanic Consultation: This SW met with patient today. Reason for consultation is homelessness. Patient is a 70 year old male. Patient was admitted to [facility] on 12/07/20 for pneumonia, and was in the CCU unit until 12/16, when he was downgraded to Telemetry. SW unable to meet with the patient until today due to patient's medical condition. Patient is awake, sitting up in bed, and has a 1:1 sitter. Patient is oriented x 1-2, is able to tell this SW his name, and is able to tell this SW that he is homeless. However, patient was not able to identify his location/situation, or date, stating that it is 1949. Patient reports that he has 4 children, which was verified by this SW earlier during patient's hospitalization, when this SW spoke with the patient's son. 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 Patient denied use of any other drugs or alcohol. Patient stated that he has not been in any substance abuse treatment program in the past. Patient was not able to state how long he has been homeless. Patient was not able to identify how he is able to obtain food while homeless. Patient's tone of voice was very low, and this SW had to frequently ask patient to repeat his answers. Patient's speech was also unclear; most of patient's teeth are missing. Patient's affect was flat, and patient observed to be fidgeting with his arm band throughout this interview, tugging at it and attempting to rip it off. Patient did not report any mental health history. SW discussed homeless community resources with the patient, and patient expressed agreement with receiving resources. Discharge plans were discussed, and patient was not able to provide a clear discharge plan. SW to coordinate with case management, as needed, to ensure a safe and proper discharge plan for this patient, possible SNF placement. Towards the end of this interview, SW once again asked the patient for the year, and patient stated 2000. SW asked patient who the current president is for the [place], and patient stated "Mueller". SW provided the following homeless resources to the patient: the [phone] [facility] Winter Correction Program that provides locations of the winter shelters: Klarissa garcia the [employer], ; [facility], [address] [place], [address], ; [facility], [facility], [address], [address], ; [facility] [place], [address] [place], [address], ; [employer] [place], [facility], [address] [place], [address]; [phone]; [facility], [facility], [address] [place], [address], ; [facility] ([place], [place]), [address], [address], [phone]; [facility], [address] [place], [address], ; [facility], [address], [address], ; [employer] [place], [facility], [address] [place] [address], ; [employer] [place], [facility], [address], [address], ; [employer] [place], [facility], [address], [address], ; the [facility] homeless directory which provides a list of places that individuals can go to throughout the week for hot meals, sack lunches, food pantries, and showers; a list of mental health clinics: [facility] [address] [place] [address], ; [facility] [address] [place] [address], ; [place] [address] [place] [address], ; a list of medical clinics: [facility] [address] [facility] [address], [place]. [place], ; [facility] [address] [facility], [address] [place] [address]; [facility] [address] [place] [address], ; and a list of substance abuse programs: [facility] Substance Abuse Self-helpline ; [facility] ; [facility] ; [facility] ; [facility] ; [facility] [phone]; [facility] [phone]. SW also provided patient with information on locations of pharmacies. Patient signed the homeless patient waiver form, and this SW filed the form in patient's chart.
[2020-12-17 15:30] VITALS: BP 123/48
[2020-12-17 16:43] LABS: BAND % (MANUAL) 1 % (0-10); LYMPHOCYTES % (MANUAL) 2 % (20-40); MONOCYTES % (MANUAL) 2 % (2-10); NEUTROPHILS % (MANUAL) 92 % (42-75)
[2020-12-17] MEDS ORDERED: ALPRAZOLAM 0.5 MG TABLET PO PRN (18:30)
[2020-12-17 19:27] VITALS: BP 139/75
--- NOTE | 2020-12-17 20:15 | NUR ---
RECEIVED PATIENT AWAKE IN BED WITH 1:1 SITTER AT BEDSIDE. PATIENT IS VERY CONFUSED AND DISORIENTED. ALERT TO SELF ONLY. VS WNL. ON TELE SR. CENTRAL LINE NOTED TO RIGHT IJ, INTACT. PATIENT GIVEN XANAX 0.5MG PO PRN FOR AGITATION/ANXIETY. COOPERATIVE WITH MEDS. WILL CONTINUE TO MONITOR AND ASSESS. BED ALARM ON. ALL NEEDS ATTENDED.
--- NOTE | 2020-12-17 22:00 | NUR ---
PATIENT ASLEEP IN BED. SITTER AT BEDSIDE.
--- NOTE | 2020-12-18 01:50 | NUR ---
PATIENT AWAKE IN BED. VERY AGITATED AND TRYING TO CLIMB AND ROLL OOB. SITTER AT BEDSIDE FOR SAFETY. PATIENT ON TELE SR AND CONVERTED TO CONTROLLED A-FLUTTER. ALL OTHER VS WNL. WILL CONTINUE TO MONITOR AND ASSESS.
[2020-12-18] MEDS: MORPHINE SULFATE 2 MG/1 ML DISP.SYRIN IV PRN (02:27)
--- NOTE | 2020-12-18 02:27 | NUR ---
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 SITTER AT BEDSIDE. VS WNL.
--- NOTE | 2020-12-18 02:38 | NUR ---
PATIENT ASLEEP IN BED. ON TELE AND CONVERTED BACK TO SR. ALL OTHER VS WNL. NO RESP. DISTRESS NOTED. SITTER AT BEDSIDE. WILL CONTINUE TO MONITOR AND ASSESS.
[2020-12-18] MEDS: PIPERACILLIN SODIUM/TAZOBACTAM 3.37 G in IV DEXTROSE 5% 100 ML IV SCH ×2 (05:03→13:09)
[2020-12-18 05:47] VITALS: BP 143/85
[2020-12-18] MEDS: PANTOPRAZOLE ORAL SUSPENSION 40 MG SUSPDR.PKT PO SCH (06:05)
[2020-12-18] MEDS: methylPREDNISolone SOD SUCC 40 MG/ML VIAL IV SCH ×2 (06:07→13:09)
[2020-12-18] MEDS: BLOOD SUGAR DIAGNOSTIC 1 EACH STRIP VI SCH ×3 (06:30→16:09)
[2020-12-18] MEDS: INSULIN REGULAR, HUMAN 300 UNIT/3 ML VIAL SQ PRN ×3 (07:45→16:18)
[2020-12-18] MEDS: GLIMEPIRIDE 2 MG TABLET PO SCH (07:55)
[2020-12-18 09:17] LABS: BASOPHILS % (AUTO) 0.3 % (0.0-2.0); EOSINOPHILS # (AUTO) 0.1 K/uL (0.0-0.7); EOSINOPHILS % (AUTO) 0.4 % (0.0-7.0); HEMATOCRIT 38.7 % (36.7-47.1); LYMPHOCYTES # (AUTO) 0.1 K/uL (20.0-40.0); LYMPHOCYTES % (AUTO) 0.8 % (20.5-51.5); MEAN CORPUSCULAR HEMOGLOBIN 32.6 uug (23.8-33.4); MEAN CORPUSCULAR HGB CONC 34 g/dL (32.5-36.3); MEAN CORPUSCULAR VOLUME 97.3 fL (73.0-96.2); MONOCYTES # (AUTO) 0.4 K/uL (2.0-10.0); NEUTROPHILS # (AUTO) 12.7 K/uL (1.8-8.9); NEUTROPHILS % (AUTO) 95.5 % (38.5-71.5); PLATELET COUNT (AUTO) 83 K/uL (152-348); RED BLOOD CELL COUNT(AUTO) 3.98 MIL/uL (4.06-5.63); WHITE BLOOD COUNT (AUTO) 13.3 K/uL (3.6-10.2)
[2020-12-18 09:23] LABS: CREATININE 1.3 mg/dL (0.6-1.3); MAGNESIUM 2.1 mg/dL (1.8-2.4); PHOSPHOROUS 2.9 mg/dL (2.5-4.9); POTASSIUM 3.4 mmol/L (3.5-5.1)
[2020-12-18] MEDS ORDERED: POTASSIUM CHLORIDE 20 MEQ TAB.PRT.SR PO ONE (11:00)
[2020-12-18 12:51] VITALS: BP 106/50
[2020-12-18] MEDS ORDERED: ALBU8HFA4 IH (14:15)
[2020-12-18] MEDS ORDERED: ACET325T53 PO (14:15)
[2020-12-18] MEDS ORDERED: MAGN400O6 PO (14:15)
[2020-12-18] MEDS ORDERED: MULT-594 PO (14:15)
[2020-12-18] MEDS ORDERED: ALPR0.5T PO (14:15)
[2020-12-18] MEDS ORDERED: FAMO-132 PO (14:15)
[2020-12-18] MEDS ORDERED: GLIM2TAB PO (14:15)
[2020-12-18] MEDS ORDERED: HYDR-4209 PO (14:15)
[2020-12-18] MEDS ORDERED: ACID1TAB4 PO (14:15)
[2020-12-18] MEDS ORDERED: METH4TAB3 PO (14:15)
[2020-12-18] MEDS ORDERED: FURO-152 PO (14:24)
[2020-12-18] MEDS ORDERED: RIVA20TA PO (14:24)
[2020-12-18 16:00] VITALS: BP 136/79
[2020-12-18] MEDS ORDERED: LISINOPRIL 5 MG TABLET PO SCH (16:00)
[2020-12-18 16:09] VITALS: BP 141/66
--- NOTE | 2020-12-18 17:56 | NUR ---
DC ORDERS RECEIVED NOTED AND CARRIED OUT.DC INSTRUCTION AND RN REPORT GIVEN TO THE HALFWAY DC IJ LINE PER MD ORDERS.PT LEFT THE FACILITY VIA AMBULANCES IN STABLE CONDITION
== END 2020-12-18 18:03 | DRG 207 ==
LOC: ER 18:08 → CCU 23:00 → TELE3 12-16 19:35
PROVIDERS: ADMIT Student in an Organized Health Care Education/Training Program; ATTEND Internal Medicine
PROC: 5A1955Z Respiratory Ventilation, Greater than 96 Consecutive Hours (ICD-10-PCS; principal; 2020-12-07)
PROC: 0BH17EZ Insertion of Endotracheal Airway into Trachea, Via Natural or Artificial Opening (ICD-10-PCS; 2020-12-07)
PROC: 02HV33Z Insertion of Infusion Device into Superior Vena Cava, Percutaneous Approach (ICD-10-PCS; 2020-12-07)
PROC: B548ZZA Ultrasonography of Superior Vena Cava, Guidance (ICD-10-PCS; 2020-12-07)
DX: J96.01 Acute respiratory failure with hypoxia (principal); I50.43 Acute on chronic combined systolic (congestive) and diastolic (congestive) heart failure; I21.A1 Myocardial infarction type 2; N17.0 Acute kidney failure with tubular necrosis; J69.0 Pneumonitis due to inhalation of food and vomit; R57.0 Cardiogenic shock; D68.69 Other thrombophilia; E87.0 Hyperosmolality and hypernatremia; E87.2 Acidosis; I48.92 Unspecified atrial flutter; I42.9 Cardiomyopathy, unspecified; J44.1 Chronic obstructive pulmonary disease with (acute) exacerbation; G93.40 Encephalopathy, unspecified; E03.9 Hypothyroidism, unspecified; D69.6 Thrombocytopenia, unspecified; E11.9 Type 2 diabetes mellitus without complications; I25.10 Atherosclerotic heart disease of native coronary artery without angina pectoris; R62.7 Adult failure to thrive; Z20.822 Contact with and (suspected) exposure to COVID-19; I48.91 Unspecified atrial fibrillation; F17.210 Nicotine dependence, cigarettes, uncomplicated; F15.10 Other stimulant abuse, uncomplicated; B19.20 Unspecified viral hepatitis C without hepatic coma; I27.21 Secondary pulmonary arterial hypertension; E87.5 Hyperkalemia; Z68.20 Body mass index [BMI] 20.0-20.9, adult; Z79.84 Long term (current) use of oral hypoglycemic drugs
CPT/HCPCS: 36415; 36556; 36600; 70030-TC; 71045; 76770; 83690; 83735; 83970; 84100; 84155; 84156; 84165; 84300; 84443; 84481; 85025; 85651; 85730; 86038; 86160; 86706; 86803; 87040; 87070; 87086; 87340; 93005; 93307; 94002; 94003; 94660; A4663; C9113; G0378; J0282; J0330; J0360; J0456; J0696; J1644; J1650; J1815; J1940; J2060; J2250; J2270; J2543; J2920; J2997; J3010; J3480; J3486; J3490; J3535; J7040; J7050; J7060; J7070; Q9967; U0003